=== PATIENT | male | born 1990 | race Caucasian/White ===

== ENCOUNTER 2020-08-27 01:51 | Inpatient (IN) | payer MEDICAID, OTHER ==
--- NOTE | 2020-08-27 02:10 | ED ---
Psych HPI - General Chief Complaint: Psychiatric Symptoms Stated Complaint: Mental health Time Seen by Provider: 08/27/20 02:01 Source: patient, police Mode of arrival: ambulatory - History of Present Illness Initial Comments: This patient is 29-year-old man who states that he has long-standing history of some mild depression. The patient presents for evaluation as he notes that his mood is been much worse going on for probably a little over a week now. Patient states she has not had any medical treatment for depression. He has had some intermittent counseling but states that he doesn't feel like talking about the issue does much. MD Complaint: feels depressed -: year(s) Associated Psychiatric Symptoms: depression, suicidal ideation History of same: Yes Quality: getting worse Improves With: none Worsens With: none Associated Symptoms: denies other symptoms - Related Data Allergies Allergy/AdvReac Type Severity Reaction Status Date / Time Sulfa (Sulfonamide Allergy Swelling Verified 08/27/20 01:57 Antibiotics) Review of Systems ROS Statement: Those systems with pertinent positive or pertinent negative responses have been documented in the HPI. ROS Other: All systems not noted in ROS Statement are negative. Constitutional: Denies: fever Respiratory: Denies: cough, dyspnea Cardiovascular: Denies: chest pain, palpitations Gastrointestinal: Denies: abdominal pain, vomiting, diarrhea Genitourinary: Denies: dysuria, hematuria Musculoskeletal: Denies: back pain Neurological: Denies: headache Psychiatric: Reports: depression, suicidal thoughts. Denies: auditory hallucinations, visual hallucinations, homicidal thoughts Past Medical History Past Medical History: No Reported History History of Any Multi-Drug Resistant Organisms: None Reported Past Surgical History: Hernia Repair Past Psychological History: Bipolar, Depression Smoking Status: Current every day smoker Past Alcohol Use History: Occasional Past Drug Use History: Marijuana General Exam Limitations: no limitations General appearance: alert, in no apparent distress Head exam: Present: atraumatic, normocephalic Eye exam: Present: normal appearance Respiratory exam: Present: normal lung sounds bilaterally. Absent: respiratory distress, wheezes, rales, rhonchi, stridor Cardiovascular Exam: Present: regular rate, normal rhythm, normal heart sounds. Absent: systolic murmur, diastolic murmur, rubs, gallop GI/Abdominal exam: Present: soft. Absent: tenderness Extremities exam: Present: normal inspection, normal capillary refill Neurological exam: Present: alert Skin exam: Present: warm, dry, intact, normal color. Absent: rash Course Vital Signs 08/27/20 01:54 Temperature 97.8 F Pulse Rate 92 Respiratory 18 Rate Blood Pressure 145/88 O2 Sat by Pulse 96 Oximetry Medical Decision Making - Lab Data Lab Results 08/27/20 Range/Units 02:55 Urine Opiates Screen Not Detected (NotDetected) Ur Oxycodone Screen Not Detected (NotDetected) Urine Methadone Screen Not Detected (NotDetected) Ur Propoxyphene Screen Not Detected (NotDetected) Ur Barbiturates Screen Not Detected (NotDetected) U Tricyclic Antidepress Not Detected (NotDetected) Ur Phencyclidine Scrn Not Detected (NotDetected) Ur Amphetamines Screen Not Detected (NotDetected) U Methamphetamines Scrn Not Detected (NotDetected) U Benzodiazepines Scrn Not Detected (NotDetected) Urine Cocaine Screen Not Detected (NotDetected) U Marijuana (THC) Screen Detected H (NotDetected) Disposition Clinical Impression: Mood disorder Disposition: TRANSFER TO PSYCH HOSP/UNIT Condition: Fair Is patient prescribed a controlled substance at d/c from ED?: No Referrals: None,Stated [Primary Care Provider] - 1-2 days
[2020-08-27 03:14] LABS: Amphetamine Screen,Urine Not Detected (NotDetected); Barbiturate Screen,Urine Not Detected (NotDetected); Benzodiazepines Screen,Urine Not Detected (NotDetected); Cocaine Screen,Urine Not Detected (NotDetected); Methadone Screen, Urine Not Detected (NotDetected); Opiate Screen,Urine Not Detected (NotDetected); Oxycodone Screen, Urine Not Detected (NotDetected); Phencyclidine Screen,Urine Not Detected (NotDetected); Tricyclic Antidepressant,Urine Not Detected (NotDetected); Urn Cannabinoid Scrn Detected (NotDetected)
[2020-08-27] MEDS ORDERED: ACETAMINOPHEN TAB 325 MG TAB PO STA (06:02)
[2020-08-27] MEDS ORDERED: ACETAMINOPHEN TAB 325 MG TAB PO PRN (06:08)
[2020-08-27] MEDS ORDERED: LORazepam 1 MG TAB PO PRN (06:08)
[2020-08-27] MEDS ORDERED: MAG HYDROX/AL HYDROX/SIMETH 30 ML CUP PO PRN (06:08)
[2020-08-27] MEDS ORDERED: ZIPRASIDONE 20 MG VIAL IM PRN (06:08)
[2020-08-27] MEDS ORDERED: MAGNESIUM HYDROXIDE 2,400 MG/10 ML CUP PO PRN (06:08)
[2020-08-27] MEDS ORDERED: LORazepam 2 MG/ML INJ IM PRN (06:10)
[2020-08-27 06:25] LABS: Amorphous Sediment,Urine Rare /hpf; Appearance,Urine Turbid (Clear); Bacteria,Urine Moderate /hpf; Bilirubin,Urine Negative (Negative); Blood,Urine Moderate (Negative); Color,Urine Yellow; Glucose,Urine (UA) Negative (Negative); Ketones,Urine Negative (Negative); Leukocyte Esterase,Urine Large (Negative); Mucus,Urine Moderate /hpf; Nitrite,Urine Positive (Negative); PH, Urine 8.5 (5.0-8.0); Protein,Urine 2+ (Negative); RBC,Urine 15 /hpf (0-5); Specific Gravity,Urine 1.023 (1.001-1.035); Squamous Epithelial Cell,Urine 1 /hpf (0-4); Urobilinogen,Urine <2.0 mg/dL (<2.0); WBC,Urine 49 /hpf (0-5)
[2020-08-27] MEDS: NICOTINE 14MG/24HR PATCH TRANSDERM SCH (09:34)
[2020-08-27] MEDS: lamoTRIgine 25 MG TAB PO SCH ×2 (12:39→20:04)
--- NOTE | 2020-08-27 13:13 | P.HP ---
Psychiatric H&P - . H&P Date: 08/27/20 History & Physical: Allergies Allergy/AdvReac Type Severity Reaction Status Date / Time Sulfa (Sulfonamide Allergy Swelling Verified 08/27/20 01:57 Antibiotics) Vital Signs Temp 97.7 F 08/27/20 06:50 Pulse 100 08/27/20 06:50 Resp 16 08/27/20 06:50 BP 132/77 08/27/20 06:50 Pulse Ox 96 08/27/20 06:50 Intake & Output 08/26/20 08/27/20 08/27/20 18:59 06:59 18:59 Weight 60.781 kg Laboratory Last Values Urine Color Yellow 08/27/20 02:55 Urine Appearance Turbid (Clear) 08/27/20 02:55 Urine pH 8.5 (5.0-8.0) H 08/27/20 02:55 Ur Specific [place] 1.023 (1.001-1.035) 08/27/20 02:55 Urine Protein 2+ (Negative) H 08/27/20 02:55 Urine Glucose (UA) Negative (Negative) 08/27/20 02:55 Urine Ketones Negative (Negative) 08/27/20 02:55 Urine Blood Moderate (Negative) H 08/27/20 02:55 Urine Nitrite Positive (Negative) 08/27/20 02:55 Urine Bilirubin Negative (Negative) 08/27/20 02:55 Urine Urobilinogen <2.0 mg/dL (<2.0) 08/27/20 02:55 Ur Leukocyte Esterase Large (Negative) H 08/27/20 02:55 Urine RBC 15 /hpf (0-5) H 08/27/20 02:55 Urine WBC 49 /hpf (0-5) H 08/27/20 02:55 Ur Squamous Epith Cells 1 /hpf (0-4) 08/27/20 02:55 Amorphous Sediment Rare /hpf (None) H 08/27/20 02:55 Urine Bacteria Moderate /hpf (None) H 08/27/20 02:55 Urine Mucus Moderate /hpf (None) H 08/27/20 02:55 Urine Opiates Screen Not Detected (NotDetected) 08/27/20 02:55 Ur Oxycodone Screen Not Detected (NotDetected) 08/27/20 02:55 Urine Methadone Screen Not Detected (NotDetected) 08/27/20 02:55 Ur Propoxyphene Screen Not Detected (NotDetected) 08/27/20 02:55 Ur Barbiturates Screen Not Detected (NotDetected) 08/27/20 02:55 U Tricyclic Antidepress Not Detected (NotDetected) 08/27/20 02:55 Ur Phencyclidine Scrn Not Detected (NotDetected) 08/27/20 02:55 Ur Amphetamines Screen Not Detected (NotDetected) 08/27/20 02:55 U Methamphetamines Scrn Not Detected (NotDetected) 08/27/20 02:55 U Benzodiazepines Scrn Not Detected (NotDetected) 08/27/20 02:55 Urine Cocaine Screen Not Detected (NotDetected) 08/27/20 02:55 U Marijuana (THC) Screen Detected (NotDetected) H 08/27/20 02:55 08/27/20 13:04 IDENTIFYING DATA: Patient is a 29-year-old male who currently lives alone in a house 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 HPI: Patient presented to the hospital yesterday complaining of a long history of depression and claims that his mood was worsening for the past week or so according to ER report. Patient described having some counseling in the past however not on any medications. Patient was fairly guarded and uncooperative in the ER about his issues and was admitted to the unit on petition and certification period patient had a positive UDS for THC. Patient had stated that he has been "spiraling out of control" and claims that he isn't having mood instability and also "negative thoughts". He states that he is feeling overwhelmed and describes several issues in his life including with a demanding work schedule and also taking multiple classes at school. He states that he has been on average irritable and snapping very easy on his girlfriend. He claims that he is also smothering towards her. He states that his father called him and they detected [id number] yesterday and claims that his father sent EMS for a well-being check and they brought him into the hospital. He states that his dad was concerned that he is hurt himself. Patient repeatedly claimed that he did not need to be here in the hospital. He claims that he has been waking up at times and thinking about negative things that happened to him in the past and the people of done to him. He states that he has poor sleep and poor appetite. He claims that his mood is "obsessive and pissed". Patient claims that he does have suicidal thoughts however no intent or plan. He denies any homicidal ideations intent or plan. At this time patient denies any auditory or visual hallucinations. Patient admits to using marijuana and alcohol occasionally and claims that he smokes cigarettes daily. PAST PSYCHIATRIC HISTORY: Patient states that He has a history of ADHD and mood disorder. [Patient denies being on any psychiatric medications. Patient denies any previous psychiatric hospitalizations. Patient denies any psychiatric outpatient follow-up. Patient denies any history of suicide attempts in the past.] PMH: History of hernia repair. ALLERGIES: [as per EMR] CHEMICAL DEPENDENCY HISTORY: [as per HPI] FAMILY PSYCHIATRIC/SUBSTANCE USE HISTORY: This is Brother has bipolar disorder. SOCIAL HISTORY: Patient was born and raised in [place] and claims that he was a " kid" and also states that he moved around several places with his family around the country. He claims that he currently attends college in the area and is working on his associates degree in IT. He states that he is currently working part-time at the grocery store. He states that he has and lives alone in a house. He states that he was in alf once for possession and use of marijuana in 2019. MENTAL STATUS EXAM: General Appearance: Patient appears to be stated age is tall, thin alert, Irritable yet attempts to cooperate. Patient appears to have fair hygiene and grooming. Behavior: Patient is seated without any agitated behavior. irritable Speech: Patient's speech is [fluent and nonpressured.] Mood/Affect: Patient reports their mood is [obsessive and depressed], affect is congruent Suicidality/Homicidality: Patient denies having any homicidal ideation intent or plan. he admits to suicidal thoughts however no intent or plan. Perceptions: Patient denies any visual hallucinations [and denies any auditory hallucinations] Though content/process: There is no evidence of any delusional thought content and thought process is linear and goal-directed. poor insight and judgment. Minimizes symptoms. Memory and concentration: AOX3, grossly intact for the purposes of this session. Can spell "WORLD" backwards Judgment and insight: [poor] STRENGTHS/WEAKNESSES: strength is that patient is [resilient]. Weakness is that patient [has poor judgment and is impulsive] INTELLECT: [average] IMPRESSIONS: Mood disorder unspecified Cannabis use disorder, mild Nicotine dependence PLAN: -Patient is admitted under involuntary status to [facility]HU for stabilization of psychiatric symptoms and safety. Patient has not signed adult voluntary form however has medication consent and is placed in patient's chart. A second certification was completed and along with petition will be filed for court. -Medications : Will start patient on lamictal 25mg BID mood stabilization/depression. Seroquel 25mg qhs for mood stabilization/ insomnia -Ativan and Geodon PRN for agitation/aggression -Patient was counselled on substance abuse and desired to cut back on use -Patient was informed of the risks, benefits and side effects of the medication and patient verbally consented to taking the medications. Patient signed med consent form and was placed in chart. -Internal Medicine consult to perform medical evaluation and physical. -NRT - nicotine patch -SW on board for discharge planning. Encourage patient to participate in groups to work on coping skills.
[2020-08-27 14:38] VITALS: BMI 18.1
[2020-08-27] MEDS: QUEtiapine 25 MG TAB PO SCH (20:04)
--- NOTE | 2020-08-27 23:34 | P.MDCNMH ---
History of Present Illness H&P Date: 08/27/20 Chief Complaint: medical evaluation 29 year old male with history of depression and anxiety, denies any other medical problems. patient was not willing to share what brought him to the hospital , he claims that he was brought in involuntarily by his father for evaluation , he denies any suicidal or homicidal ideation , but does admit to long history of hearing voices. He currently denies any fever, chills, chest pain or trouble breathing, he denies any nausea or vomiting, denies any abd pain. he denies any medical concerns at this time patient claims that he has quit smoking about 2 months ago and doing ok, denies any drugs, or regular alcohol use. Review of Systems Pertinent positives as noted in HPI. All other systems were reviewed and are negative Past Medical History Past Medical History: No Reported History History of Any Multi-Drug Resistant Organisms: None Reported Past Surgical History: Hernia Repair Past Psychological History: Bipolar, Depression Smoking Status: Current every day smoker Past Alcohol Use History: Occasional Past Drug Use History: Marijuana - Past Family History family Additional Family Medical History / Comment(s): addiction Medications and Allergies Allergies Allergy/AdvReac Type Severity Reaction Status Date / Time Sulfa (Sulfonamide Allergy Swelling Verified 08/27/20 01:57 Antibiotics) Physical Exam Vitals: Vital Signs Temp Pulse Pulse Resp BP BP Pulse Ox 08/27/20 06:50 97.7 F 100 16 132/77 96 08/27/20 01:54 97.8 F 92 18 145/88 96 Intake and Output 08/27/20 08/27/20 08/28/20 14:59 22:59 06:59 Other: Weight 60.781 kg Constitutional: No acute distress, conversant, pleasant Eyes: Anicteric sclerae, moist conjunctiva, Pupils equal round reactive to light ENMT: NC/AT Oropharynx clear, no erythema, or exudates Neck: Supple, FROM, no masses, or JVD No carotid bruits No thyromegaly Lungs: Clear to auscultation Clear to percussion Normal respiratory effort, no accessory muscle use Cardiovascular: Heart regular in rate and rhythm, No murmurs, gallops, or rubs No peripheral edema Abdominal: Soft Nontender, no guarding, rebound or rigidity Abdomen moving with respiration Normoactive bowel sounds No hepatomegaly, No splenomegaly No palpable mass No abdominal wall hernia noted Skin: Normal temperature, tone, texture, turgor No induration No subcutaneous nodules No rash, lesions No ulcers Extremities: No digital cyanosis No clubbing Pedal pulses intact and symmetrical Radial pulses intact and symmetrical No calf tenderness Psychiatric: Alert and oriented to person, place and time Appropriate affect fair judgement Neuro Muscles Strength 5/5 in all 4 extremities Sensation to light touch grossly present throughout Cranial nerves II-XII grossly intact No focal sensory deficits Lymphatics: no palpable cervical or supraclavicular , or inguinal lymph nodes Cranial Nerve Examination - Cranial Nerves Cranial Nerve II- Optic: Intact Cranial Nerve III- Oculomotor: Intact Cranial Nerve IV- Trochlear: Intact Cranial Nerve V- Trigeminal: Intact Cranial Nerve - Abducens: Intact Cranial Nerve VII- Facial: Intact Cranial Nerve VIII- Auditory: Intact Cranial Nerve IX- Glossopharyngeal: Intact Cranial Nerve X- Vagus: Intact Cranial Nerve XI- Accessory: Intact Cranial Nerve XII- Hypoglossal: Intact Results Labs: Abnormal Lab Results - Last 24 Hours (Table) 08/27/20 08/27/20 Range/Units 02:55 02:55 Urine pH 8.5 H (5.0-8.0) Urine Protein 2+ H (Negative) Urine Blood Moderate H (Negative) Ur Leukocyte Esterase Large H (Negative) Urine RBC 15 H (0-5) /hpf Urine WBC 49 H (0-5) /hpf Amorphous Sediment Rare H (None) /hpf Urine Bacteria Moderate H (None) /hpf Urine Mucus Moderate H (None) /hpf U Marijuana (THC) Screen Detected H (NotDetected) Assessment and Plan Assessment: depression hearing voices management per psych low risk for DVT patient ambulatory follow up labs check TSH, patient reports nervousness, excessive sweating Thank you for allowing us to participate in the care of this patient. We will follow peripherally. Do not hesitate to contact us with questions. Someone can be reached from the [facility] hospitalist group at all hours of the day at [phone].
[2020-08-28] MEDS: lamoTRIgine 25 MG TAB PO SCH (07:46)
[2020-08-28] MEDS: NICOTINE 14MG/24HR PATCH TRANSDERM SCH (07:46)
--- NOTE | 2020-08-28 09:41 | P.PN ---
Progress Note - Text Progress Note Date: 08/28/20 Interval History: Patient was seen sitting in on group this morning and was directable and agree able to speak with business writer in the office. Patient continues to display some irritability and was focusing on another patient on the unit who "just does not stop talking" and claims that this patient usually hangs out in the [employer] where he is trying to unwind and watch the news and claims that he is constantly interrupted by her. He states that he has bad thoughts towards her however claims that "I would never do anything to her". He states that he was able to sleep better last night on the Seroquel however was woken up by the medical doctor in the middle the night. He states that he continues to feel irritable. He did claim that he wants his father involved in his care and is willing to sign the release of information. Claims have fair energy today. He continues to endorse suicidal thoughts however no intent or plan. He denies any suicidal or homical ideations, intent or plan. Patient denies any auditory, visual hallucinations and denies any paranoia or delusions. Patient denies any side effects from the medications and has been compliant with meds. Mental Status Exam: General Appearance: Patient appears to be stated age is tall, thin alert, irritable yet attempts to cooperate. Patient appears to have fair hygiene and grooming. Behavior: Patient is seated without any agitated behavior. irritable Speech: Patient's speech is fluent and nonpressured. Mood/Affect: Patient reports their mood is "depressed", affect is congruent Suicidality/Homicidality: Patient denies having any homicidal ideation intent or plan. he admits to suicidal thoughts however no intent or plan. Perceptions: Patient denies any visual hallucinations and denies any auditory hallucinations Though content/process: There is no evidence of any delusional thought content and thought process is linear and goal-directed. Focus on his symptoms. Memory and concentration: AOX3, grossly intact for the purposes of this session. Judgment and insight: poor, improving mildly Assessment Mood disorder unspecified Cannabis use disorder, mild Nicotine dependence Plan: -Patient continues to meet criteria for inpatient psychiatric admission for symptom stabilization and safety. Patient has signed medication consent and was placed in patient's chart. Patient's deferral date will be set for tomorrow and full court hearing on September 03. -Medications: Increase Lamictal to 50 mg twice a day for mood stabilization/depression. Patient is continuing to monitor his skin for any suspected rashes. Seroquel 25 mg daily at bedtime for mood stabilization/insomnia. -When necessary Ativan and Geodon for agitation/aggression. -NRT - nicotine patch -SW on board for discharge planning. Encouraged the patient to participate in milieu. We'll ask social media marketing analyst to ensure the patient has the release of information signed for father to gather further information.
[2020-08-28 12:01] LABS: Basophils # (A) 0.1 k/uL (0-0.2); Basophils % (A) 1 %; Eosinophils # (A) 0.7 k/uL (0-0.7); Eosinophils % (A) 8 %; HCT 52.6 % (39.0-53.0); HGB 17.4 gm/dL (13.0-17.5); Lymphocytes # (A) 2.5 k/uL (1.0-4.8); Lymphocytes % (A) 27 %; MCH 31.1 pg (25.0-35.0); MCHC 33.1 g/dL (31.0-37.0); MCV 94.2 fL (80.0-100.0); Mean Platelet Volume 7.7; Monocytes # (A) 0.5 k/uL (0-1.0); Monocytes % (A) 6 %; Neutrophils # (A) 5.3 k/uL (1.3-7.7); Neutrophils % (A) 58 %; Platelet Count 205 k/uL (150-450); RBC 5.58 m/uL (4.30-5.90); RDW 12.9 % (11.5-15.5); WBC 9.2 k/uL (3.8-10.6)
[2020-08-28 12:19] LABS: ALT 25 U/L (4-49); African American GFR (CKD) >90 (>60 ml/min/1.73 sqM); Albumin 5.2 g/dL (3.5-5.0); Anion Gap 12 mmol/L; Bilirubin, Delta 0.2 mg/dL (0.0-0.2); Bilirubin,Unconjugated 0.7 mg/dL (0.0-1.1); Blood Urea Nitrogen 16 mg/dL (9-20); Calcium 10.3 mg/dL (8.4-10.2); Carbon Dioxide 22 mmol/L (22-30); Chloride 103 mmol/L (98-107); Glucose 95 mg/dL (74-99); Non-African American GFR(CKD) >90 (>60 ml/min/1.73 sqM); Sodium 137 mmol/L (137-145); Total Bilirubin 0.9 mg/dL (0.2-1.3); Total Protein 8.3 g/dL (6.3-8.2)
[2020-08-28 12:20] LABS: AST 31 U/L (17-59); Alkaline Phosphatase 73 U/L (38-126); Potassium 4.9 mmol/L (3.5-5.1)
[2020-08-28 13:06] LABS: Cholesterol 199 mg/dL (<200); HDL Cholesterol 75 mg/dL (40-60); LDL Cholesterol,Calculated 70 mg/dL (0-99); Triglycerides 270 mg/dL (<150)
[2020-08-28] MEDS: QUEtiapine 25 MG TAB PO SCH (20:04)
[2020-08-28] MEDS ORDERED: lamoTRIgine 25 MG TAB PO SCH (21:00)
[2020-08-28] MEDS ORDERED: lamoTRIgine 25 MG TAB PO ONE (21:00)
[2020-08-28 21:30] LABS: Hemoglobin A1C 4.6 % (4.0-6.0)
[2020-08-29] MEDS: lamoTRIgine 25 MG TAB PO SCH ×2 (08:19→20:08)
[2020-08-29] MEDS: NICOTINE 14MG/24HR PATCH TRANSDERM SCH (08:19)
[2020-08-29] MEDS ORDERED: lamoTRIgine 25 MG TAB PO SCH (09:00)
--- NOTE | 2020-08-29 12:37 | P.PN ---
Progress Note - Text Progress Note Date: 08/29/20 Interval History: Patient was seen wandering the hallways this morning and was directable and ag reeable to speak with sheet writer in the office. Patient had several forms in his hand and asked sheet writer to look at them regarding his short-term disability application. Patient was unclear about how his irritability and anxiety are going and claims that "being here, people are just making me really upset and afraid of him and stop on them". He states that the staff have been treating him very nice except for other patients on the unit. He claims that his mood has been gradually getting better and claims that they does not have suicidal thoughts. He states that he was able to sleep better last night on the Seroquel. He states that he continues to feel irritable. Claims have fair energy today. He claims that he has not spoken to his girlfriend yet and claims that today was her birthday and is anxious to talk to her at some point. He denies any suicidal or homical ideations, intent or plan. Patient denies any auditory, visual hallucinations and denies any paranoia or delusions. Patient denies any side effects from the medications and has been compliant with meds. Mental Status Exam: General Appearance: Patient appears to be stated age is tall, thin alert, appears to be calmer, attempts to cooperate. Patient appears to have fair hygiene and grooming. Behavior: Patient is seated without any agitated behavior. less, irritable Speech: Patient's speech is fluent and nonpressured. Mood/Affect: Patient reports their mood is "a bit better", affect is congruent Suicidality/Homicidality: Patient denies having any homicidal ideation intent or plan. he admits to suicidal thoughts however no intent or plan. Perceptions: Patient denies any visual hallucinations and denies any auditory hallucinations Though content/process: There is no evidence of any delusional thought content and thought process is linear and goal-directed. Focused on his symptoms. Memory and concentration: AOX3, grossly intact for the purposes of this session. Judgment and insight: poor, improving mildly Assessment Mood disorder unspecified Cannabis use disorder, mild Nicotine dependence Plan: -Patient continues to meet criteria for inpatient psychiatric admission for symptom stabilization and safety. Patient has signed medication consent and was placed in patient's chart. Patient's deferral date will be set for tomorrow and full court hearing on September 03. -Medications: Continue Lamictal to 50 mg twice a day for mood stabilization/depression. Patient is continuing to monitor his skin for any suspected rashes. Continue with Seroquel 25 mg daily at bedtime for mood stabilization/insomnia. Patient is agreeable to start Zoloft today 50 mg daily for mood/anxiety. -When necessary Ativan and Geodon for agitation/aggression. -NRT - nicotine patch -SW on board for discharge planning. Encouraged the patient to participate in milieu. We'll continue to work to improve patients symptoms and possibly look at discharge back home early next week if he shows improvement over the weekend.
[2020-08-29] MEDS: SERTRALINE 50 MG TAB PO SCH (12:45)
[2020-08-29] MEDS: QUEtiapine 25 MG TAB PO SCH (20:08)
[2020-08-30 06:59] VITALS: RESP 16
[2020-08-30] MEDS: lamoTRIgine 25 MG TAB PO SCH ×2 (08:18→20:24)
[2020-08-30] MEDS: SERTRALINE 50 MG TAB PO SCH (08:18)
[2020-08-30] MEDS: NICOTINE 14MG/24HR PATCH TRANSDERM SCH (08:18)
--- NOTE | 2020-08-30 11:20 | P.PN ---
Progress Note - Text Progress Note Date: 08/30/20 Interval History: Patient was seen taking part in group this morning and was directable and agre eable to speak with script writer in the office. Patient appeared to be calmer today and appeared to be less depressed. He states that he has a brighter affect this morning and was able to participate in group better and was currently playing activities. He states that in the morning time "for 1-2 hours I feel depressed" however after that he states he feels better. He claims that he is feeling more optimistic about his future and his willingness to get help when he leaves the unit. He claims that his mood has been gradually getting better and claims that they does not have suicidal thoughts. He states that he did not sleep very well last night and is requesting to have his Seroquel increased. Claims have fair energy today. He claims that he has been getting about his girlfriend and will be speaking with her later on today. He denies any suicidal or homical ideations, intent or plan. Patient denies any auditory, visual hallucinations and denies any paranoia or delusions. Patient denies any side effects from the medications and has been compliant with meds. Mental Status Exam: General Appearance: Patient appears to be stated age is tall, thin alert, appears to be calmer, attempts to cooperate. Patient appears to have fair hygiene and grooming. Behavior: Patient is seated without any agitated behavior. Appears to be calmer today Speech: Patient's speech is fluent and nonpressured. Mood/Affect: Patient reports their mood is "better", affect is congruent Suicidality/Homicidality: Patient denies having any homicidal ideation intent or plan. He denies any suicidal thoughts intent or plan. Perceptions: Patient denies any visual hallucinations and denies any auditory hallucinations Though content/process: There is no evidence of any delusional thought content and thought process is linear and goal-directed. Focused on his symptoms. Future oriented. Memory and concentration: AOX3, grossly intact for the purposes of this session. Judgment and insight: improving mildly Assessment Mood disorder unspecified Cannabis use disorder, mild Nicotine dependence Plan: -Patient continues to meet criteria for inpatient psychiatric admission for symptom stabilization and safety. Patient has signed medication consent and was placed in patient's chart. Patient's deferral date will be set for tomorrow and full court hearing on September 03. -Medications: Continue Lamictal to 50 mg twice a day for mood stabilization/depression. Patient is continuing to monitor his skin for any suspected rashes. Increased Seroquel 50 mg daily at bedtime for mood stabilization/insomnia. Increased Zoloft today 100 mg daily for mood/anxiety. -When necessary Ativan and Geodon for agitation/aggression. -NRT - nicotine patch -SW on board for discharge planning. Encouraged the patient to participate in milieu. We'll continue to work to improve patients symptoms and possibly look at discharge back home early next week if he shows improvement over the weekend.
[2020-08-30] MEDS: QUEtiapine 50 MG TAB PO SCH (20:24)
[2020-08-31] MEDS: lamoTRIgine 25 MG TAB PO SCH ×2 (08:16→20:29)
[2020-08-31] MEDS: NICOTINE 14MG/24HR PATCH TRANSDERM SCH (08:17)
[2020-08-31] MEDS: SERTRALINE 100 MG TAB PO SCH (08:17)
--- NOTE | 2020-08-31 09:20 | P.PN ---
Progress Note - Text Progress Note Date: 08/31/20 Interval History: Patient was seen in the [facility] this morning and was directable and agreeable to speak with video games storywriter in the office. Patient appeared to be calmer today and appears to have a brighter affect this morning. He claims that he was able to participate in group better. He states that in the morning she feels like he has minor racing thoughts however these go away after the first one to 2 hours after he takes his medication. He claims that he is feeling more optimistic about his future. He states that he would be ready for discharge tomorrow. Claims that he'll be staying with his friend for the next 2 days and then his father will come to stay with him. He claims that his mood has been gradually getting better and claims that they does not have suicidal thoughts. He claims that he thought that her sleep last night approximately 6 hours. Claims have fair energy today. He denies any suicidal or homical ideations, intent or plan. Patient denies any auditory, visual hallucinations and denies any paranoia or delusions. Patient denies any side effects from the medications and has been compliant with meds. Mental Status Exam: General Appearance: Patient appears to be stated age is tall, thin alert, appears to be calmer, attempts to cooperate. Patient appears to have fair hygiene and grooming. Behavior: Patient is seated without any agitated behavior. Appears to be calmer today Speech: Patient's speech is fluent and nonpressured. Mood/Affect: Patient reports their mood is "good", affect is congruent Suicidality/Homicidality: Patient denies having any homicidal ideation intent or plan. He denies any suicidal thoughts intent or plan. Perceptions: Patient denies any visual hallucinations and denies any auditory hallucinations Though content/process: There is no evidence of any delusional thought content and thought process is linear and goal-directed. more future oriented. Memory and concentration: AOX3, grossly intact for the purposes of this session. Judgment and insight: improving mildly Assessment Mood disorder unspecified Cannabis use disorder, mild Nicotine dependence Plan: -Patient continues to meet criteria for inpatient psychiatric admission for symptom stabilization and safety. Patient has signed medication consent and was placed in patient's chart. Patient's deferral date will be set for tomorrow and full court hearing on September 03. -Medications: Continue Lamictal to 50 mg twice a day for mood stabilization/depression. Patient is continuing to monitor his skin for any suspected rashes. Continue with Seroquel 50 mg daily at bedtime for mood stabilization/insomnia. Continue with Zoloft today 100 mg daily for mood/anxie ty. -When necessary Ativan and Geodon for agitation/aggression. -NRT - nicotine patch -SW on board for discharge planning. Encouraged the patient to participate in milieu. Likely discharge to friend's house tomorrow.
[2020-08-31] MEDS: QUEtiapine 50 MG TAB PO SCH (20:29)
[2020-09-01 06:33] VITALS: BP 139/86; PULSE 82; TEMP 98
[2020-09-01] MEDS: NICOTINE 14MG/24HR PATCH TRANSDERM SCH (08:43)
[2020-09-01] MEDS: SERTRALINE 100 MG TAB PO SCH (08:44)
[2020-09-01] MEDS: lamoTRIgine 25 MG TAB PO SCH (08:44)
--- NOTE | 2020-09-01 10:12 | P.DS ---
Providers Date of admission: 08/27/20 06:01 Expected date of discharge: 09/01/20 Attending physician: Ramiro Dos Santos MD Consults: 08/27/20 06:08 Consult Physician Routine Consulting Provider: Jerry Kemp Consult Reason/Comments: Medical H and P Do you want consulting provider notified?: Yes Primary care physician: Stated None - Discharge Diagnosis(es) (1) Unspecified mood [affective] disorder Current Visit: Yes Status: Acute Priority: High (2) Cannabis use disorder, mild, abuse Current Visit: Yes Status: Acute Priority: Medium (3) Nicotine dependence Current Visit: Yes Status: Acute Priority: Low Hospital Course: Admission HPI: Patient is a 29-year-old male who currently lives alone in a house 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 Patient described having some counseling in the past however not on any medications. Patient was fairly guarded and uncooperative in the ER about his issues and was admitted to the unit on petition and certification period patient had a positive UDS for THC. Patient had stated that he has been "spiraling out of control" and claims that he isn't having mood instability and also "negative thoughts". He states that he is feeling overwhelmed and describes several issues in his life including with a demanding work schedule and also taking multiple classes at school. He states that he has been on average irritable and snapping very easy on his girlfriend. He claims that he is also smothering towards her. He states that his father called him and they detected [id number] yesterday and claims that his father sent EMS for a well-being check and they brought him into the hospital. He states that his dad was concerned that he is hurt himself. Patient repeatedly claimed that he did not need to be here in the hospital. He claims that he has been waking up at times and thinking about negative things that happened to him in the past and the people of done to him. He states that he has poor sleep and poor appetite. He claims that his mood is "obsessive and pissed". Patient claims that he does have suicidal thoughts however no intent or plan. He denies any homicidal ideations intent or plan. At this time patient denies any auditory or visual hallucinations. Patient admits to using marijuana and alcohol occasionally and claims that he smokes cigarettes daily. Hospital course: Upon admission to the unit patient was initially irritable and depressed. Patient came up on a petition and certificate and a second certificate was filed and patient ended up deferring court and agreeing to treatment. Patient got along well with other patients on the unit and followed unit protocol. Patient was compliant with the medications and denied any side effects throughout hospital course. Patient was started on Lamictal and titrated up to dose of 50 mg twice a day for mood stabilization/depression. Patient was also started on Seroquel and titrated up to dose of 75 mg daily at bedtime for insomnia/mood stabilization. Patient was also started on Zoloft titrated up to dose of 100 mg daily for mood/anxiety. Patient spoke of his stressors and engaged in therapy both group and individual. Patient was also seen by medical team for history and physical exam. Throughout the course of the hospitalization patient gradually improved with regards to mood, anxiety, sleep and became future oriented with improved insight and judgment. On the day of discharge patient denied any suicidal or homicidal ideations intent or plan denied any auditory or visual hallucinations. Patient endorsed wanting to live for his future and family. The patient denied any access to guns or weapons. Patient denied any paranoia and did not endorse any delusions. Patient does have a significant history of substance abuse and was counseled on abstaining from all substances including alcohol and marijuana. Patient was also counseled on the medications and need for regular compliance and was encouraged to follow-up with their outpatient appointment for mental health and also for primary care. Prior to discharge a family meeting will be arranged by social science research assistant to answer any questions and ensure safety upon discharge. Patient's father will be coming up to stay with him in 2 days post discharge and patient's friend will be staying with him at his house immediately upon discharge. Mental status exam: General Appearance: Patient appears to be tall, thin stated age is alert, pleasant, and cooperative. Patient is in no acute distress and has improved hygiene and grooming Behavior: Patient is calmly seated without any agitated behavior. Speech: Patient's speech is fluent and nonpressured. Mood/Affect: Patient reports their mood is "ok", affect is congruent and euthymic. Suicidality/Homicidality: Patient denies having any suicidal or homicidal ideation intent or plan. Perceptions: Patient denies any auditory or visual hallucinations. Though content/process: There is no evidence of any delusional thought content and thought process is linear and goal-directed. more future oriented Memory and concentration: AOX3, grossly intact for the purposes of this session. Can spell "WORLD" backwards correctly. Judgment and insight: improved with guarded prognosis Impression: Mood disorder unspecified Cannabis use disorder, mild Nicotine dependence Plan: -Continue with discharge today as patient has improved and stabilized psychiatrically and is not currently an imminent threat to himself and/or others. Patient will remain at chronically elevated risk for harm to self and/or others due to his impulsivity. -Continue medications: Continue the Lamictal 50 mg twice a day for mood stabilization/depression, Seroquel 50 mg nightly for mood stabilization/insomnia. Continue Zoloft 100 mg daily for mood sessions. -Patient was counseled on the need for medication compliance and appropriate follow-up at mental health and also primary care for medical issues. Patient verbalized understanding and agreed. -Social work to arrange for and conduct family meeting to ensure safety upon discharge and answer any questions/concerns. Social work also to arrange for patients follow up appointments for psychiatric care along with follow up with primary care provider. -Patient counseled on abstaining from recreational drugs and marijuana and alcohol. Was informed/educated on the adverse effects on their physical and mental health. Patient verbally agreed and understood. Patient was offered substance abuse treatment however declined at this time. -Patient was instructed to return to the hospital or seek immediate medical care if their psychiatric or medical symptoms do worsen or reoccur. Allergies Allergy/AdvReac Type Severity Reaction Status Date / Time Sulfa (Sulfonamide Allergy Swelling Verified 08/27/20 01:57 Antibiotics) Laboratory Results WBC 9.2 k/uL (3.8-10.6) 08/28/20 11:39 RBC 5.58 m/uL (4.30-5.90) 08/28/20 11:39 Hgb 17.4 gm/dL (13.0-17.5) 08/28/20 11:39 Hct 52.6 % (39.0-53.0) 08/28/20 11:39 MCV 94.2 fL (80.0-100.0) 08/28/20 11:39 MCH 31.1 pg (25.0-35.0) 08/28/20 11:39 MCHC 33.1 g/dL (31.0-37.0) 08/28/20 11:39 RDW 12.9 % (11.5-15.5) 08/28/20 11:39 Plt Count 205 k/uL (150-450) 08/28/20 11:39 Neutrophils % 58 % 08/28/20 11:39 Lymphocytes % 27 % 08/28/20 11:39 Monocytes % 6 % 08/28/20 11:39 Eosinophils % 8 % 08/28/20 11:39 Basophils % 1 % 08/28/20 11:39 Neutrophils # 5.3 k/uL (1.3-7.7) 08/28/20 11:39 Lymphocytes # 2.5 k/uL (1.0-4.8) 08/28/20 11:39 Monocytes # 0.5 k/uL (0-1.0) 08/28/20 11:39 Eosinophils # 0.7 k/uL (0-0.7) 08/28/20 11:39 Basophils # 0.1 k/uL (0-0.2) 08/28/20 11:39 Sodium 137 mmol/L (137-145) 08/28/20 11:39 Potassium 4.9 mmol/L (3.5-5.1) 08/28/20 11:39 Chloride 103 mmol/L (98-107) 08/28/20 11:39 Carbon Dioxide 22 mmol/L (22-30) 08/28/20 11:39 Anion Gap 12 mmol/L 08/28/20 11:39 BUN 16 mg/dL (9-20) 08/28/20 11:39 Creatinine 0.84 mg/dL (0.66-1.25) 08/28/20 11:39 Est GFR (CKD-EPI)AfAm >90 (>60 ml/min/1.73 sqM) 08/28/20 11:39 Est GFR (CKD-EPI)NonAf >90 (>60 ml/min/1.73 sqM) 08/28/20 11:39 Glucose 95 mg/dL (74-99) 08/28/20 11:[address] Glu mg/dL 85 08/28/20 11:39 Hemoglobin A1c 4.6 % (4.0-6.0) 08/28/20 11:39 Calcium 10.3 mg/dL (8.4-10.2) H 08/28/20 11:39 Total Bilirubin 0.9 mg/dL (0.2-1.3) 08/28/20 11:39 Conjugated Bilirubin 0.0 mg/dL (0.0-0.3) 08/28/20 11:39 Unconjugated Bilirubin 0.7 mg/dL (0.0-1.1) 08/28/20 11:39 Delta Bilirubin 0.2 mg/dL (0.0-0.2) 08/28/20 11:39 AST 31 U/L (17-59) 08/28/20 11:39 ALT 25 U/L (4-49) 08/28/20 11:39 Alkaline Phosphatase 73 U/L (38-126) 08/28/20 11:39 Total Protein 8.3 g/dL (6.3-8.2) H 08/28/20 11:39 Albumin 5.2 g/dL (3.5-5.0) H 08/28/20 11:39 Triglycerides 270 mg/dL (<150) H 08/28/20 11:39 Cholesterol 199 mg/dL (<200) 08/28/20 11:39 LDL Cholesterol, Calc 70 mg/dL (0-99) 08/28/20 11:39 HDL Cholesterol 75 mg/dL (40-60) H 08/28/20 11:39 TSH 2.030 mIU/L (0.465-4.680) 08/28/20 11:39 Urine Color Yellow 08/27/20 02:55 Urine Appearance Turbid (Clear) 08/27/20 02:55 Urine pH 8.5 (5.0-8.0) H 08/27/20 02:55 Ur Specific [place] 1.023 (1.001-1.035) 08/27/20 02:55 Urine Protein 2+ (Negative) H 08/27/20 02:55 Urine Glucose (UA) Negative (Negative) 08/27/20 02:55 Urine Ketones Negative (Negative) 08/27/20 02:55 Urine Blood Moderate (Negative) H 08/27/20 02:55 Urine Nitrite Positive (Negative) 08/27/20 02:55 Urine Bilirubin Negative (Negative) 08/27/20 02:55 Urine Urobilinogen <2.0 mg/dL (<2.0) 08/27/20 02:55 Ur Leukocyte Esterase Large (Negative) H 08/27/20 02:55 Urine RBC 15 /hpf (0-5) H 08/27/20 02:55 Urine WBC 49 /hpf (0-5) H 08/27/20 02:55 Ur Squamous Epith Cells 1 /hpf (0-4) 08/27/20 02:55 Amorphous Sediment Rare /hpf (None) H 08/27/20 02:55 Urine Bacteria Moderate /hpf (None) H 08/27/20 02:55 Urine Mucus Moderate /hpf (None) H 08/27/20 02:55 Urine Opiates Screen Not Detected (NotDetected) 08/27/20 02:55 Ur Oxycodone Screen Not Detected (NotDetected) 08/27/20 02:55 Urine Methadone Screen Not Detected (NotDetected) 08/27/20 02:55 Ur Propoxyphene Screen Not Detected (NotDetected) 08/27/20 02:55 Ur Barbiturates Screen Not Detected (NotDetected) 08/27/20 02:55 U Tricyclic Antidepress Not Detected (NotDetected) 08/27/20 02:55 Ur Phencyclidine Scrn Not Detected (NotDetected) 08/27/20 02:55 Ur Amphetamines Screen Not Detected (NotDetected) 08/27/20 02:55 U Methamphetamines Scrn Not Detected (NotDetected) 08/27/20 02:55 U Benzodiazepines Scrn Not Detected (NotDetected) 08/27/20 02:55 Urine Cocaine Screen Not Detected (NotDetected) 08/27/20 02:55 U Marijuana (THC) Screen Detected (NotDetected) H 08/27/20 02:55 Vital Signs Temp 98.0 F 09/01/20 06:32 Pulse 82 09/01/20 06:32 Resp 16 09/01/20 06:32 BP 139/86 09/01/20 06:32 Pulse Ox 96 09/01/20 06:32 Intake & Output 10/09/01/20 09/01/20 18:59 06:59 18:59 Weight 60.9 kg Patient Condition at Discharge: Stable Plan - Discharge Summary New Discharge Prescriptions: New Nicotine 14Mg/24Hr Patch [Habitrol] 1 patch TRANSDERM DAILY 14 Days patch lamoTRIgine [LaMICtal] 50 mg PO BID 30 Days tab Melatonin 5 mg PO HS 30 Days tablet QUEtiapine [SEROquel] 75 mg PO HS 30 Days tab Sertraline [Zoloft] 100 mg PO DAILY 30 Days tab Discharge Medication List Melatonin 5 mg PO HS 30 Days tablet 09/01/20 [Rx] Nicotine 14Mg/24Hr Patch [Habitrol] 1 patch TRANSDERM DAILY 14 Days patch 09/01/20 [Rx] QUEtiapine [SEROquel] 75 mg PO HS 30 Days tab 09/01/20 [Rx] Sertraline [Zoloft] 100 mg PO DAILY 30 Days tab 09/01/20 [Rx] lamoTRIgine [LaMICtal] 50 mg PO BID 30 Days tab 09/01/20 [Rx] Follow up Appointment(s)/Referral(s): None,Stated [Primary Care Provider] - 1-2 days Activity/Diet/Wound Care/Special Instructions: Activity and diet as tolerated. Avoid the use of street drugs and alcohol. Take all medications as prescribed. When you are in need of refills on your medications please contact your medical provider and/or outpatient psychiatrist to have this done. Please go to scheduled outpatient appointment for aftercare treatment. If symptoms return or become worse, call the crisis line at and/or go to the nearest emergency room for evaluation. Discharge Disposition: HOME SELF-CARE
[2020-09-01] MEDS ORDERED: QUEtiapine 25 MG TAB PO SCH (21:00)
[2020-09-01] MEDS ORDERED: MELATONIN 5 MG TABLET PO SCH (21:00)
== END 2020-09-01 11:45 | disposition home or self-care (01) | DRG 885 ==
LOC: EC 01:51 → 3MHU 06:01
PROVIDERS: ADMIT Psychiatry & Neurology Psychiatry; ATTEND Psychiatry & Neurology Psychiatry
DX: F39 Unspecified mood [affective] disorder (principal); R45.851 Suicidal ideations; F31.9 Bipolar disorder, unspecified; F12.10 Cannabis abuse, uncomplicated; F90.9 Attention-deficit hyperactivity disorder, unspecified type; F41.9 Anxiety disorder, unspecified; R45.87 Impulsiveness; G47.00 Insomnia, unspecified; F17.210 Nicotine dependence, cigarettes, uncomplicated; Z71.51 Drug abuse counseling and surveillance of drug abuser; Z87.19 Personal history of other diseases of the digestive system; Z98.890 Other specified postprocedural states; Z88.2 Allergy status to sulfonamides; Z81.8 Family history of other mental and behavioral disorders
CPT/HCPCS: 80053; 80061; 80306; 81001; 82075; 82248; 83036; 84443; 85025; 99285

== ENCOUNTER 2022-01-10 09:36 | Emergency (ER) | payer BC, OTHER ==
[2022-01-10 09:52] VITALS: BP 120/70; PULSE 80; RESP 14
[2022-01-10 09:53] VITALS: TEMP 98.3
[2022-01-10] MEDS ORDERED: diphenhydrAMINE 50 MG/ML 1 ML VIAL IVP STA (10:12)
[2022-01-10] MEDS ORDERED: METOCLOPRAMIDE 5 MG/ML 2 ML VIAL IVP STA (10:12)
[2022-01-10] MEDS ORDERED: KETOROLAC 15 MG/ML 1 ML VIAL IVP STA (10:12)
[2022-01-10] MEDS ORDERED: SODIUM CHLORIDE 0.9% 2,000 ML IV STA (10:12)
[2022-01-10 10:36] LABS: Basophils # (A) 0.1 k/uL (0-0.2); Basophils % (A) 1 %; Eosinophils # (A) 0.4 k/uL (0-0.7); Eosinophils % (A) 3 %; HCT 48.7 % (39.0-53.0); HGB 16.9 gm/dL (13.0-17.5); Lymphocytes # (A) 1.2 k/uL (1.0-4.8); Lymphocytes % (A) 8 %; MCH 30.6 pg (25.0-35.0); MCHC 34.8 g/dL (31.0-37.0); Mean Platelet Volume 7.7; Monocytes # (A) 0.6 k/uL (0-1.0); Monocytes % (A) 4 %; Neutrophils # (A) 11.6 k/uL (1.3-7.7); Neutrophils % (A) 83 %; Platelet Count 161 k/uL (150-450); RBC 5.53 m/uL (4.30-5.90); RDW 12.4 % (11.5-15.5)
[2022-01-10 10:46] LABS: ALT 27 U/L (4-49); AST 21 U/L (17-59); African American GFR (CKD) >90 (>60 ml/min/1.73 sqM); Albumin 4.7 g/dL (3.5-5.0); Alkaline Phosphatase 86 U/L (38-126); Amylase 58 U/L (30-110); Anion Gap 9 mmol/L; Blood Urea Nitrogen 11 mg/dL (9-20); Calcium 9.4 mg/dL (8.4-10.2); Carbon Dioxide 26 mmol/L (22-30); Chloride 103 mmol/L (98-107); Glucose 108 mg/dL (74-99); Lipase 41 U/L (23-300); Non-African American GFR(CKD) >90 (>60 ml/min/1.73 sqM); Potassium 3.8 mmol/L (3.5-5.1); Sodium 138 mmol/L (137-145); Total Bilirubin 0.6 mg/dL (0.2-1.3); Total Protein 7.8 g/dL (6.3-8.2)
--- NOTE | 2022-01-10 11:11 | ED ---
Abdominal Pain HPI - General Chief Complaint: Abdominal Pain Stated Complaint: abd pain Time Seen by Provider: 01/10/22 09:43 Source: patient, RN notes reviewed Mode of arrival: ambulatory Limitations: no limitations - History of Present Illness Initial Comments: 31-year-old male presents emergency from chief complaint of abdominal pain, nausea vomiting. Patient states that it started last night has progressively worsened. Patient states he has lower abdominal pain that she's had fevers or chills, severe vomiting no sick contacts. Patient states she did have some diarrhea no dysuria no hematuria denies any prior abdominal surgeries no other complaints. - Related Data Previous Rx's Medication Instructions Recorded Melatonin 5 mg PO HS 30 Days tablet 09/01/20 Nicotine 14Mg/24Hr Patch [Habitrol] 1 patch TRANSDERM DAILY 14 Days 09/01/20 patch QUEtiapine [SEROquel] 75 mg PO HS 30 Days tab 09/01/20 Sertraline [Zoloft] 100 mg PO DAILY 30 Days tab 09/01/20 lamoTRIgine [LaMICtal] 50 mg PO BID 30 Days tab 09/01/20 Ondansetron Odt [Zofran Odt] 4 mg PO Q8HR PRN #14 tab 01/10/22 Allergies Allergy/AdvReac Type Severity Reaction Status Date / Time Sulfa (Sulfonamide Allergy Swelling Verified 01/10/22 09:39 Antibiotics) Review of Systems ROS Statement: Those systems with pertinent positive or pertinent negative responses have been documented in the HPI. ROS Other: All systems not noted in ROS Statement are negative. Past Medical History Past Medical History: No Reported History History of Any Multi-Drug Resistant Organisms: None Reported Past Surgical History: Hernia Repair Past Psychological History: Bipolar, Depression Smoking Status: Current every day smoker, Vaper Past Alcohol Use History: Occasional Past Drug Use History: Marijuana - Past Family History family Additional Family Medical History / Comment(s): addiction General Exam Limitations: no limitations General appearance: alert, in no apparent distress Head exam: Present: atraumatic, normocephalic, normal inspection Eye exam: Present: normal appearance, PERRL, EOMI. Absent: scleral icterus, conjunctival injection, periorbital swelling ENT exam: Present: normal exam, normal oropharynx, mucous membranes moist Neck exam: Present: normal inspection, full ROM. Absent: tenderness, men ingismus, lymphadenopathy Respiratory exam: Present: normal lung sounds bilaterally. Absent: respiratory distress, wheezes, rales, rhonchi, stridor Cardiovascular Exam: Present: regular rate, normal rhythm, normal heart sounds. Absent: systolic murmur, diastolic murmur, rubs, gallop, clicks GI/Abdominal exam: Present: soft, tenderness, normal bowel sounds. Absent: distended, guarding, rebound, rigid Back exam: Absent: CVA tenderness (R), CVA tenderness (L) Course Vital Signs 01/10/22 01/10/22 09:37 09:47 Temperature 97.4 F L 98.3 F Pulse Rate 85 80 Respiratory 20 14 Rate Blood Pressure 117/78 120/70 O2 Sat by Pulse 98 99 Oximetry Medical Decision Making - Medical Decision Making CT shows evidence of nonspecific colitis. Patient's lab work revealed no significant findings. Patient was hydrated, given antiemetics feels greatly improved discharged in stable condition return parameters were discussed. - Lab Data Result diagrams: 01/10/22 10:12 01/10/22 10:12 Lab Results 01/10/22 01/10/22 01/10/22 Range/Units 10:12 10:12 10:12 WBC 14.0 H (3.8-10.6) k/uL RBC 5.53 (4.30-5.90) m/uL Hgb 16.9 (13.0-17.5) gm/dL Hct 48.7 (39.0-53.0) % MCV 88.0 (80.0-100.0) fL MCH 30.6 (25.0-35.0) pg MCHC 34.8 (31.0-37.0) g/dL RDW 12.4 (11.5-15.5) % Plt Count 161 (150-450) k/uL MPV 7.7 Neutrophils % 83 % Lymphocytes % 8 % Monocytes % 4 % Eosinophils % 3 % Basophils % 1 % Neutrophils # 11.6 H (1.3-7.7) k/uL Lymphocytes # 1.2 (1.0-4.8) k/uL Monocytes # 0.6 (0-1.0) k/uL Eosinophils # 0.4 (0-0.7) k/uL Basophils # 0.1 (0-0.2) k/uL Sodium 138 (137-145) mmol/L Potassium 3.8 (3.5-5.1) mmol/L Chloride 103 (98-107) mmol/L Carbon Dioxide 26 (22-30) mmol/L Anion Gap 9 mmol/L BUN 11 (9-20) mg/dL Creatinine 1.01 (0.66-1.25) mg/dL Est GFR (CKD-EPI)AfAm >90 (>60 ml/min/1.73 sqM) Est GFR (CKD-EPI)NonAf >90 (>60 ml/min/1.73 sqM) Glucose 108 H (74-99) mg/dL Plasma Lactic Acid [place] 1.9 (0.7-2.0) mmol/L Calcium 9.4 (8.4-10.2) mg/dL Total Bilirubin 0.6 (0.2-1.3) mg/dL AST 21 (17-59) U/L ALT 27 (4-49) U/L Alkaline Phosphatase 86 (38-126) U/L Total Protein 7.8 (6.3-8.2) g/dL Albumin 4.7 (3.5-5.0) g/dL Amylase 58 (30-110) U/L Lipase 41 (23-300) U/L Disposition Clinical Impression: Colitis, Nausea & vomiting Disposition: HOME SELF-CARE Condition: Stable Instructions (If sedation given, give patient instructions): Colitis (ED) Additional Instructions: Please return to the Emergency Department if symptoms worsen or any other concerns. Prescriptions: Ondansetron Odt [Zofran Odt] 4 mg PO Q8HR PRN #14 tab PRN Reason: Nausea Is patient prescribed a controlled substance at d/c from ED?: No Referrals: Isma Gutierrez MD [Primary Care Provider] - 1-2 days Time of Disposition: 11:36
--- NOTE | 2022-01-10 11:25 | CT ---
EXAMINATION TYPE: CT abdomen pelvis w con DATE OF EXAM: 01/10/2022 COMPARISON: None HISTORY: Rectal bleeding 2 days ago, Nausea and vomiting today CT DLP: 885.8 mGycm CONTRAST: CT scan of the abdomen and pelvis is performed without Oral Contrast and with IV Contrast, patient in jected with 100 ml mL of Isovue 300. FINDINGS: LUNG BASES-: No visible nodule. No infiltrate. LIVER/GB: No calcified gallstones. No space occupying hepatic lesion. Biliary tree is of normal ca liber. PANCREAS: No inflammation. No distinct mass. SPLEEN: No splenic enlargement. No lesion seen. ADRENALS: No nodule. No thickening. KIDNEYS/BLADDER: No hydronephrosis. No nephrolithiasis. No distinct renal mass. Urinary bladder g rossly unremarkable. BOWEL: Normal appendix. Mild wall thickening involving the descending colon and sigmoid colon which m ay reflect nonspecific colitis. Correlate clinically. GENITAL ORGANS: No gross abnormality. LYMPH NODES: No greater than 1cm abdominal or pelvic lymph nodes are appreciated. AORTA: No significant abnormality. OSSEOUS STRUCTURES: No significant abnormality is seen. OTHER: No significant additional abnormality is seen. IMPRESSION: 1. Correlate for nonspecific colitis.
== END 2022-01-10 11:57 | disposition home or self-care (01) ==
LOC: EC 09:36
DX: K52.9 Noninfective gastroenteritis and colitis, unspecified (principal); R11.2 Nausea with vomiting, unspecified; F31.9 Bipolar disorder, unspecified; F17.290 Nicotine dependence, other tobacco product, uncomplicated; F12.90 Cannabis use, unspecified, uncomplicated; Z88.2 Allergy status to sulfonamides
CPT/HCPCS: 99284; 96374; 96375 ×3; 36415; 80053; 82150; 83605; 83690; 85025; 74177; J1200; J2765; J1885; Q9967; J1790